=== PATIENT | female | born 1970 | race African-American/Black ===

== ENCOUNTER 2017-06-12 14:00 | Emergency (ER) | payer SELFPAY ==
[2017-06-12 14:24] VITALS: BP 141/92; PULSE 75; TEMP 97.9; BMI 22.7
[2017-06-12] MEDS ORDERED: ACETAMINOPHEN 500 MG TABLET (FP) PO ONE (14:24)
--- NOTE | 2017-06-12 14:25 | PDOC ---
Rapid Medical Evaluation Time Seen by Provider: 06/12/17 14:21 Medical Evaluation: 06/12/17 14:21 I have performed a brief in person evaluation of this patient. The patient presents with chief complaint of :headache for 2-3 days with nausea across frontal region of forehead. history of fibroid removal Pertinent PE findings: stable no distress I have ordered the following: urine preg The patient will proceed to the ER for further evaluation.
[2017-06-12] MEDS ORDERED: ACETAMINOPHEN 500 MG TABLET (FP) ONE (15:49)
--- NOTE | 2017-06-12 16:32 | PDOC ---
History of Present Illness - General Chief Complaint: Headache Stated Complaint: HEADACHE Time Seen by Provider: 06/12/17 14:21 Past History - Past Medical History Allergies/Adverse Reactions: Allergies Allergy/AdvReac Type Severity Reaction Status Date / Time No Known Allergies Allergy Verified 06/12/17 14:21 Home Medications: Ambulatory Orders NK [No Known Home Medication] 06/12/17 COPD: No Other medical history: DENIES. - Suicide/Smoking/Psychosocial Hx Smoking History: Never smoked *Physical Exam - Vital Signs Last Vital Signs Temp Pulse Resp BP Pulse Ox 97.9 F 75 19 141/92 100 06/12/17 14:21 06/12/17 14:21 06/12/17 14:21 06/12/17 14:21 06/12/17 14:21 ED Treatment Course - Medications Given in the ED: ED Medications Discontinued Medications Generic Name Dose Route Start Last Admin Trade Name Freq PRN Reason Stop Dose Admin Acetaminophen 1,000 mg 06/12/17 14:24 06/12/17 15:53 Tylenol - PO 06/12/17 14:25 1,000 mg ONCE ONE Administration *DC/Admit/Observation/Transfer Diagnosis at time of Disposition: Migraine Qualifiers: Migraine type: without aura Status migrainosus presence: without status migrainosus Intractability: not intractable Qualified Code(s): G43.009 - Migraine without aura, not intractable, without status migrainosus - Discharge Dispostion Disposition: HOME Condition at time of disposition: Improved Admit: No - Referrals Referrals: Houston Alba MD [Staff Physician] - Tarik Goodson MD [Staff Physician] - - Patient Instructions Printed Discharge Instructions: DI for Migraine Additional Instructions: You had a migraine. Please take 800mg Motrin three times a day for the next week. Do not exceed 3,000mg a day. Please follow up with your primary care doctor within the next 2-3 days. Please follow up with neurology as well. Please return to the ED if you have worsening headaches, nausea, vomiting, fevers, or any changes in your symptoms. - Post Discharge Activity
[2017-06-12] MEDS ORDERED: METOCLOPRAMIDE HCL INJECTION 10 MG/2 ML VIAL IVPUSH ONE (16:45)
[2017-06-12] MEDS ORDERED: METOCLOPRAMIDE HCL INJECTION 10 MG/2 ML VIAL ONE (17:04)
[2017-06-12] MEDS ORDERED: SODIUM CHLORIDE 1,000 ML IV STA (17:18)
[2017-06-12] MEDS ORDERED: KETOROLAC TROMETHAMINE 30 MG/1 ML VIAL IVPUSH ONE (18:36)
[2017-06-12] MEDS ORDERED: KETOROLAC TROMETHAMINE 30 MG/1 ML VIAL ONE (18:52)
== END 2017-06-12 19:31 | disposition home or self-care (01) ==
LOC: JERFT 14:00
PROC: 3E033GC Introduction of Other Therapeutic Substance into Peripheral Vein, Percutaneous Approach (ICD-10-PCS; principal; 2017-06-12)
PROC: 3E0333Z Introduction of Anti-inflammatory into Peripheral Vein, Percutaneous Approach (ICD-10-PCS; 2017-06-12)
PROC: 3E0337Z Introduction of Electrolytic and Water Balance Substance into Peripheral Vein, Percutaneous Approach (ICD-10-PCS; 2017-06-12)
DX: G43.009 Migraine without aura, not intractable, without status migrainosus (principal)
CPT/HCPCS: 70450-TC; 84703; 99281-25